=== PATIENT | female | born 1925 | race Caucasian/White ===

== ENCOUNTER 2016-12-14 19:34 | Inpatient (IN) | payer OTHER ==
[~2016-12-14] VITALS: Ht 152.4 cm; Wt 50.8 kg
[~2016-12-14 19:34] MED LIST: AMOXICILLIN500 MG PO
[2016-12-14 20:22] LABS: HEMATOCRIT 23.6 % (36.0-46.0); MCH 30.3 PG (29.0-34.0); MCHC 33.9 G/DL (30.0-36.0); MCV 89.4 FL (83-99); RBC DIS.WIDTH-CV 13.6 % (11.8-14.6); RBC DIS.WIDTH-SD 42.1 % (39-53); RED BLOOD COUNT 2.64 M/uL (3.80-5.20)
[2016-12-14 20:29] LABS: CHLORIDE 98 mEq/L (99-109); POTASSIUM 4.3 mEq/L (3.7-5.4); SODIUM 131 mEq/L (136-147)
[2016-12-14 20:31] LABS: GLUCOSE 102 mg/dL (70-99)
[2016-12-14 20:33] LABS: ANION GAP 12 MEQ/L (2-14)
[2016-12-14 20:35] LABS: GFR ESTIMATE (CALCULATED) 25 mL/min/
[2016-12-14 20:38] LABS: UREA NITROGEN (BUN) 124 mg/dL (9-23)
[2016-12-14 21:09] LABS: MEAN PLAT.VOLUME 12.4 uM^3 (9.5-12.4); PLATELET COUNT 6 K/uL (156-360)
[2016-12-14] MEDS ORDERED: PHENERGAN DM SYR1 ML PO (22:37)
[2016-12-14] MEDS ORDERED: ATENOLOL100 MG PO (22:37)
[2016-12-14] MEDS ORDERED: VALSARTAN-HCTZ1 EAC3 PO (22:38)
[2016-12-14] MEDS ORDERED: LEVOTHYROXINE125 MCG PO (22:38)
[2016-12-14] MEDS ORDERED: ADVAIR 250/501 DISK IH (22:38)
[2016-12-14 22:39] LABS: ABSOLUTE RETICULOCYTE CT. 0.08 M/uL (0.02-0.08); HEMATOCRIT 23.4 % (36.0-46.0); IMM.RETIC FRACTION 21.6 % (3-19); MCHC 33.8 G/DL (30.0-36.0); RBC DIS.WIDTH-CV 13.4 % (11.8-14.6); RBC DIS.WIDTH-SD 41.5 % (39-53); RED BLOOD COUNT 2.63 M/uL (3.80-5.20); WHITE BLOOD COUNT 18.9 K/uL (4.1-10.2)
[2016-12-14] MEDS ORDERED: MEPROBAMATE200 MG PO (22:39)
[2016-12-14] MEDS ORDERED: VITAMIN D31000 UNI2 PO (22:40)
[2016-12-14] MEDS ORDERED: TUSSIN15 MG/5 M1 PO (22:40)
[2016-12-14] MEDS ORDERED: VITAMIN B-6100 MG PO (22:41)
[2016-12-14 22:49] LABS: CHLORIDE 101 mEq/L (99-109); POTASSIUM 3.7 mEq/L (3.7-5.4); SODIUM 134 mEq/L (136-147)
[2016-12-14 22:51] LABS: GLUCOSE 77 mg/dL (70-99)
[2016-12-14 22:52] LABS: ANION GAP 12 MEQ/L (2-14); INTER. NORMALIZED RATIO 1.1; PROTHROMBIN TIME 10.8 (9.2-11.2); PTT 27.8 (25-32)
[2016-12-14 22:53] LABS: TOTAL BILIRUBIN 0.8 mg/dL (0.0-1.0)
[2016-12-14 22:55] LABS: ALKALINE PHOSPHATASE 52 IU/L (3-129); GFR ESTIMATE (CALCULATED) 30 mL/min/
[2016-12-14 22:57] LABS: UREA NITROGEN (BUN) 116 mg/dL (9-23)
[2016-12-14 23:34] LABS: LACTATE DEHYDROGENASE 286 IU/L (20-246)
[2016-12-15] VITALS (22 sets, daily range): BP systolic 0–158; BP diastolic 0–89
[2016-12-15 01:05] LABS: ANISOCYTOSIS 2+; MACROCYTES 1+; MICROCYTOSIS 1+; OVALOCYTES 1+; PLAT.SUFFICIENCY DECREASED; PLATELET COUNT 2 K/uL (156-360); POLYCHROMASIA RARE; SCHISTOCYTES RARE; SMUDGE CELLS 0
[2016-12-15 02:46] LABS: FIBRINOGEN 467 MG/DL (160-450)
[2016-12-15 03:21] LABS: METH RESISTANT S AUREUS PCR NEGATIVE (NEGATIVE)
[2016-12-15 03:33] LABS: PROBE CHECK PASS; SPECIMEN PROCESSING CONTROL PASS
[2016-12-15 06:25] LABS: ALKALINE PHOSPHATASE 47 IU/L (3-129); ANION GAP 14 MEQ/L (2-14); CHLORIDE 97 MEQ/L (99-109); GFR ESTIMATE (CALCULATED) 35 mL/min/; GLUCOSE 81 mg/dL (70-99); POTASSIUM 3.5 MEQ/L (3.7-5.4); SAMPLE HEMOLYSIS CHECK 0; SAMPLE ICTERIC CHECK 0; SAMPLE LIPEMIA CHECK 0; SODIUM 130 MEQ/L (136-147); TOTAL BILIRUBIN 1.2 MG/DL (0.0-1.0)
[2016-12-15 06:48] LABS: UREA NITROGEN (BUN) 102 mg/dL (9-23)
[2016-12-15 07:05] LABS: MCH 29.9 PG (29.0-34.0); MCHC 34.3 G/DL (30.0-36.0); MCV 87.2 FL (83-99); RBC DIS.WIDTH-CV 13.9 % (11.8-14.6); RBC DIS.WIDTH-SD 44.1 % (39-53)
[2016-12-15 07:10] LABS: RED BLOOD COUNT 3.21 M/uL (3.80-5.20)
[2016-12-15 08:20] LABS: ABS NEUTROPHIL COUNT 16.74; ANISOCYTOSIS 1+; MACROCYTES OCC; NRBC (%) 0.8 /100 WBC (0-0); OVALOCYTES 1+; PLAT.SUFFICIENCY DECREASED; POLYCHROMASIA OCC
[2016-12-15 08:28] LABS: DELETE MACHINE DIFF? YES; MEAN PLAT.VOLUME 9.6 uM^3 (9.5-12.4); PLATELET COUNT 25 K/uL (156-360)
[2016-12-15 13:02] LABS: HEMATOCRIT 25.3 % (36.0-46.0); MCH 29.9 PG (29.0-34.0); MCHC 35.6 G/DL (30.0-36.0); MCV 84.1 FL (83-99); NRBC (%) 0.8 /100 WBC (0-0); RBC DIS.WIDTH-CV 15.1 % (11.8-14.6); RBC DIS.WIDTH-SD 46.2 % (39-53); RED BLOOD COUNT 3.01 M/uL (3.80-5.20); WHITE BLOOD COUNT 18.4 K/uL (4.1-10.2)
[2016-12-15 13:41] LABS: HEMATOLOGY COMMENT 1 SMEAR COMPATIBLE; USER ID CL
[2016-12-15 13:42] LABS: BASOPHIL COUNT 0.1 K/uL (0-0.1); EOSINOPHIL (%) 0 % (0-5); IMMATURE GRANULOCYTE (%) 13.3 % (0.0-0.7); IMMATURE GRANULOCYTE COUNT 2.5 K/uL; LYMPHOCYTE COUNT 1.2 K/uL (1.0-2.8); MONOCYTE (%) 4.1 % (3-12); MONOCYTE COUNT 0.8 K/uL (0-0.8); NEUTROPHIL (%) 75.8 % (45-76)
[2016-12-15 13:59] LABS: MEAN PLAT.VOLUME 12.2 uM^3 (9.5-12.4); PLATELET COUNT 51 K/uL (156-360)
[2016-12-15 19:02] LABS: HEMATOCRIT 24.4 % (36.0-46.0); MCH 29.7 PG (29.0-34.0); MCHC 35.7 G/DL (30.0-36.0); MCV 83.3 FL (83-99); MEAN PLAT.VOLUME 11.6 uM^3 (9.5-12.4); NRBC (%) 1.2 /100 WBC (0-0); PLATELET COUNT 56 K/uL (156-360); RBC DIS.WIDTH-CV 15.3 % (11.8-14.6); RBC DIS.WIDTH-SD 46.3 % (39-53); RED BLOOD COUNT 2.93 M/uL (3.80-5.20); WHITE BLOOD COUNT 17.4 K/uL (4.1-10.2)
[2016-12-15 19:48] LABS: ABS NEUTROPHIL COUNT 15.47; ANISOCYTOSIS 1+; BASOPHIL COUNT 0.1 K/uL (0-0.1); EOSINOPHIL (%) 0.1 % (0-5); IMMATURE GRANULOCYTE (%) 15.8 % (0.0-0.7); IMMATURE GRANULOCYTE COUNT 2.7 K/uL; LYMPHOCYTE COUNT 1.1 K/uL (1.0-2.8); MONOCYTE (%) 6.8 % (3-12); MONOCYTE COUNT 1.2 K/uL (0-0.8); NEUTROPHIL (%) 70.7 % (45-76); NEUTROPHIL COUNT 12.3 K/uL (1.8-6.4); PLAT.SUFFICIENCY DECREASED; USER ID NPD
[2016-12-16] VITALS (14 sets, daily range): BP systolic 100–140; BP diastolic 42–88
[2016-12-16 01:07] LABS: HEMATOCRIT 22.9 % (36.0-46.0); MCH 29.6 PG (29.0-34.0); MCHC 34.9 G/DL (30.0-36.0); MCV 84.8 FL (83-99); RBC DIS.WIDTH-CV 15.1 % (11.8-14.6); RBC DIS.WIDTH-SD 44.4 % (39-53); WHITE BLOOD COUNT 16.1 K/uL (4.1-10.2)
[2016-12-16 02:39] LABS: DELETE MACHINE DIFF? YES
[2016-12-16 02:52] LABS: ABS NEUTROPHIL COUNT 13.16; ANISOCYTOSIS 1+; MEAN PLAT.VOLUME 13.1 uM^3 (9.5-12.4); OVALOCYTES RARE; PLAT.SUFFICIENCY DECREASED; PLATELET COUNT 35 K/uL (156-360); POLYCHROMASIA 1+
[2016-12-16 05:49] LABS: HEMATOCRIT 22.8 % (36.0-46.0); MCH 29.5 PG (29.0-34.0); MCHC 34.6 G/DL (30.0-36.0); MCV 85.1 FL (83-99); NRBC (%) 0.8 /100 WBC (0-0); RBC DIS.WIDTH-CV 15.9 % (11.8-14.6); RBC DIS.WIDTH-SD 48.8 % (39-53); RED BLOOD COUNT 2.68 M/uL (3.80-5.20); WHITE BLOOD COUNT 14.6 K/uL (4.1-10.2)
[2016-12-16 07:50] LABS: ABS NEUTROPHIL COUNT 12.98; ANISOCYTOSIS 1+; DELETE MACHINE DIFF? YES; HYPOCHROMASIA 1+; MACROCYTES OCC; MEAN PLAT.VOLUME 12.1 uM^3 (9.5-12.4); MICROCYTOSIS OCC; PLAT.SUFFICIENCY DECREASED; PLATELET COUNT 34 K/uL (156-360); POLYCHROMASIA OCC; SPHEROCYTES 1+; USER ID TLW
[2016-12-16 08:30] LABS: ALKALINE PHOSPHATASE 40 IU/L (3-129); ANION GAP 11 MEQ/L (2-14); GFR ESTIMATE (CALCULATED) 50 mL/min/; POTASSIUM 2.8 MEQ/L (3.7-5.4); SAMPLE HEMOLYSIS CHECK 0; SAMPLE ICTERIC CHECK 0; SAMPLE LIPEMIA CHECK 0; UREA NITROGEN (BUN) 64 mg/dL (9-23)
[2016-12-16 08:33] LABS: CHLORIDE 107 MEQ/L (99-109); GLUCOSE 181 mg/dL (70-99); SODIUM 141 MEQ/L (136-147)
[2016-12-16 12:17] LABS: NRBC (%) 0.6 /100 WBC (0-0)
[2016-12-16 12:26] LABS: HEMATOCRIT 25.7 % (36.0-46.0); MCH 29.8 PG (29.0-34.0); MCV 85.1 FL (83-99); RBC DIS.WIDTH-CV 15.8 % (11.8-14.6); RBC DIS.WIDTH-SD 48.7 % (39-53); RED BLOOD COUNT 3.02 M/uL (3.80-5.20)
[2016-12-16 12:27] LABS: DELETE MACHINE DIFF? YES; MEAN PLAT.VOLUME 9.6 uM^3 (9.5-12.4); PLATELET COUNT 119 K/uL (156-360); WHITE BLOOD COUNT 19.3 K/uL (4.1-10.2)
[2016-12-16 18:05] LABS: HEMATOCRIT 25.9 % (36.0-46.0); MCH 29.7 PG (29.0-34.0); MCHC 34.7 G/DL (30.0-36.0); MCV 85.5 FL (83-99); MEAN PLAT.VOLUME 10.5 uM^3 (9.5-12.4); PLATELET COUNT 109 K/uL (156-360); RBC DIS.WIDTH-SD 49.2 % (39-53); RED BLOOD COUNT 3.03 M/uL (3.80-5.20); WHITE BLOOD COUNT 17.4 K/uL (4.1-10.2)
[2016-12-16 19:05] LABS: ABS NEUTROPHIL COUNT 14.46
[2016-12-16 19:06] LABS: DELETE MACHINE DIFF? YES
[2016-12-17] VITALS: BP 139/85
[2016-12-17 00:46] LABS: HEMATOCRIT 25.7 % (36.0-46.0); MCH 29.6 PG (29.0-34.0); MCHC 34.6 G/DL (30.0-36.0); MCV 85.4 FL (83-99); RBC DIS.WIDTH-CV 15.8 % (11.8-14.6); RBC DIS.WIDTH-SD 46.2 % (39-53); RED BLOOD COUNT 3.01 M/uL (3.80-5.20); WHITE BLOOD COUNT 19.1 K/uL (4.1-10.2)
[2016-12-17 01:46] LABS: ANISOCYTOSIS 1+; PLAT.SUFFICIENCY DECREASED; POLYCHROMASIA 1+; TEAR DROP CELLS OCC; USER ID SLU
[2016-12-17 01:47] LABS: DELETE MACHINE DIFF? YES; MEAN PLAT.VOLUME 11.8 uM^3 (9.5-12.4); PLATELET COUNT 52 K/uL (156-360)
[2016-12-17 04:00] VITALS: BP 115/62
[2016-12-17 06:12] LABS: HEMATOCRIT 24.7 % (36.0-46.0); MCH 28.7 PG (29.0-34.0); MCHC 33.6 G/DL (30.0-36.0); MCV 85.5 FL (83-99); NRBC (%) 0.9 /100 WBC (0-0); RBC DIS.WIDTH-CV 16.1 % (11.8-14.6); RBC DIS.WIDTH-SD 48.9 % (39-53); RED BLOOD COUNT 2.89 M/uL (3.80-5.20); WHITE BLOOD COUNT 16.9 K/uL (4.1-10.2)
[2016-12-17 06:34] LABS: DELETE MACHINE DIFF? YES; MEAN PLAT.VOLUME 10.5 uM^3 (9.5-12.4)
[2016-12-17 06:36] LABS: ALKALINE PHOSPHATASE 50 IU/L (3-129); ANION GAP 11 MEQ/L (2-14); CHLORIDE 108 MEQ/L (99-109); GFR ESTIMATE (CALCULATED) 50 mL/min/; GLUCOSE 184 mg/dL (70-99); POTASSIUM 3.2 MEQ/L (3.7-5.4); SAMPLE HEMOLYSIS CHECK 0; SAMPLE ICTERIC CHECK 0; SAMPLE LIPEMIA CHECK 0; SODIUM 142 MEQ/L (136-147); TOTAL BILIRUBIN 0.9 MG/DL (0.0-1.0); UREA NITROGEN (BUN) 46 mg/dL (9-23)
[2016-12-17 06:38] LABS: PLATELET COUNT 106 K/uL (156-360)
[2016-12-17 08:00] VITALS: BP 158/74
[2016-12-17 10:40] LABS: ABS NEUTROPHIL COUNT 13.82; ANISOCYTOSIS 1+; MACROCYTES OCC; MICROCYTOSIS 1+; PLAT.SUFFICIENCY DECREASED; POLYCHROMASIA OCC; USER ID STC
[2016-12-17 12:00] VITALS: BP 151/78
[2016-12-17 12:38] LABS: HEMATOCRIT 27.3 % (36.0-46.0); MCH 29.9 PG (29.0-34.0); MCHC 34.4 G/DL (30.0-36.0); MCV 86.9 FL (83-99); MEAN PLAT.VOLUME 11.8 uM^3 (9.5-12.4); NRBC (%) 1.2 /100 WBC (0-0); PLATELET COUNT 129 K/uL (156-360); RBC DIS.WIDTH-CV 16.4 % (11.8-14.6); RBC DIS.WIDTH-SD 49.5 % (39-53); RED BLOOD COUNT 3.14 M/uL (3.80-5.20); WHITE BLOOD COUNT 20.6 K/uL (4.1-10.2)
[2016-12-17 14:43] LABS: ABS NEUTROPHIL COUNT 14.95; ANISOCYTOSIS 1+; BASOPHIL COUNT 0.1 K/uL (0-0.1); EOSINOPHIL (%) 0 % (0-5); EOSINOPHILS 0.5 % (0-5.0); IMMATURE GRANULOCYTE (%) 17.9 % (0.0-0.7); IMMATURE GRANULOCYTE COUNT 3.7 K/uL; MACROCYTES OCC; MICROCYTOSIS OCC; MONOCYTE (%) 10.2 % (3-12); MONOCYTE COUNT 2.1 K/uL (0-0.8); MYELOCYTES 6.5 %; NEUTROPHIL (%) 66.5 % (45-76); NEUTROPHIL COUNT 13.7 K/uL (1.8-6.4); NUCLEATED RBC'S 1.5; PLAT.SUFFICIENCY DECREASED; POLYCHROMASIA OCC; SEG.NEUTROPHILS 65.5 % (46.0-76.0)
[2016-12-17 18:56] LABS: HEMATOCRIT 30.1 % (36.0-46.0); MCH 28.6 PG (29.0-34.0); MCHC 32.9 G/DL (30.0-36.0); MEAN PLAT.VOLUME 11.8 uM^3 (9.5-12.4); NRBC (%) 0.7 /100 WBC (0-0); PLATELET COUNT 136 K/uL (156-360); RBC DIS.WIDTH-CV 16.6 % (11.8-14.6); RBC DIS.WIDTH-SD 49.4 % (39-53); RED BLOOD COUNT 3.46 M/uL (3.80-5.20); WHITE BLOOD COUNT 19.1 K/uL (4.1-10.2)
[2016-12-17 20:00] VITALS: BP 146/60
[2016-12-17 20:28] LABS: ANISOCYTOSIS 2+; BASOPHIL COUNT 0.1 K/uL (0-0.1); EOSINOPHIL (%) 0 % (0-5); IMMATURE GRANULOCYTE COUNT 3.1 K/uL; MACROCYTES OCC; MICROCYTOSIS OCC; MONOCYTE (%) 7.5 % (3-12); MONOCYTE COUNT 1.4 K/uL (0-0.8); NEUTROPHIL (%) 70.8 % (45-76); NEUTROPHIL COUNT 13.5 K/uL (1.8-6.4); PLAT.SUFFICIENCY ADEQUATE; POLYCHROMASIA OCC; USER ID NJV
[2016-12-18] VITALS (7 sets, daily range): BP systolic 110–178; BP diastolic 47–86
[2016-12-18 01:12] LABS: HEMATOCRIT 25.3 % (36.0-46.0); MCH 29.3 PG (29.0-34.0); MCHC 33.6 G/DL (30.0-36.0); MCV 87.2 FL (83-99); MEAN PLAT.VOLUME 11.9 uM^3 (9.5-12.4); PLATELET COUNT 120 K/uL (156-360); RBC DIS.WIDTH-CV 17.2 % (11.8-14.6); RBC DIS.WIDTH-SD 48.2 % (39-53); WHITE BLOOD COUNT 19.4 K/uL (4.1-10.2)
[2016-12-18 01:39] LABS: NRBC (%) 0.6 /100 WBC (0-0)
[2016-12-18 02:32] LABS: ANISOCYTOSIS 1+; MACROCYTES 1+; MICROCYTOSIS FEW; PLAT.SUFFICIENCY ADEQUATE; POLYCHROMASIA FEW
[2016-12-18 02:33] LABS: ABS NEUTROPHIL COUNT 17.24
[2016-12-18 05:59] LABS: HEMATOCRIT 26.1 % (36.0-46.0); MCHC 33.7 G/DL (30.0-36.0); MCV 89.1 FL (83-99); NRBC (%) 0.6 /100 WBC (0-0); PLATELET COUNT 112 K/uL (156-360); RBC DIS.WIDTH-CV 17.5 % (11.8-14.6); RBC DIS.WIDTH-SD 52.2 % (39-53); RED BLOOD COUNT 2.93 M/uL (3.80-5.20); WHITE BLOOD COUNT 17.1 K/uL (4.1-10.2)
[2016-12-18 06:54] LABS: ALKALINE PHOSPHATASE 50 IU/L (3-129); ANION GAP 8 MEQ/L (2-14); CHLORIDE 109 MEQ/L (99-109); GFR ESTIMATE (CALCULATED) 50 mL/min/; GLUCOSE 182 mg/dL (70-99); POTASSIUM 3.8 MEQ/L (3.7-5.4); SAMPLE HEMOLYSIS CHECK 0; SAMPLE ICTERIC CHECK 0; SAMPLE LIPEMIA CHECK 0; SODIUM 140 MEQ/L (136-147); TOTAL BILIRUBIN 0.7 MG/DL (0.0-1.0); UREA NITROGEN (BUN) 37 mg/dL (9-23)
[2016-12-18 07:16] LABS: ABS NEUTROPHIL COUNT 14.88; ANISOCYTOSIS 1+; MACROCYTES OCC; PLAT.SUFFICIENCY DECREASED; POLYCHROMASIA OCC; USER ID MCB
[2016-12-18 07:22] LABS: DELETE MACHINE DIFF? YES
[2016-12-18 13:13] LABS: HEMATOCRIT 28.8 % (36.0-46.0); MCH 29.9 PG (29.0-34.0); MCHC 33.7 G/DL (30.0-36.0); MCV 88.9 FL (83-99); NRBC (%) 0.6 /100 WBC (0-0); RBC DIS.WIDTH-CV 17.6 % (11.8-14.6); RBC DIS.WIDTH-SD 51.6 % (39-53); RED BLOOD COUNT 3.24 M/uL (3.80-5.20); WHITE BLOOD COUNT 22.2 K/uL (4.1-10.2)
[2016-12-18 13:21] LABS: MEAN PLAT.VOLUME 12.5 uM^3 (9.5-12.4)
[2016-12-18 13:26] LABS: PLATELET COUNT 148 K/uL (156-360)
[2016-12-18 14:13] LABS: ABS NEUTROPHIL COUNT 18.97; ANISOCYTOSIS 1+; DELETE MACHINE DIFF? YES; LYMPHOCYTES 3.5 % (15.0-45.0); MACROCYTES OCC; PLAT.SUFFICIENCY ADEQUATE; POLYCHROMASIA OCC; SEG.NEUTROPHILS 70.5 % (46.0-76.0); USER ID MCB
[2016-12-18 18:49] LABS: HEMATOCRIT 28.1 % (36.0-46.0); MCH 29.8 PG (29.0-34.0); MCHC 33.8 G/DL (30.0-36.0); MCV 88.1 FL (83-99); MEAN PLAT.VOLUME 11.9 uM^3 (9.5-12.4); NRBC (%) 0.7 /100 WBC (0-0); PLATELET COUNT 147 K/uL (156-360); RBC DIS.WIDTH-CV 17.7 % (11.8-14.6); RBC DIS.WIDTH-SD 51.2 % (39-53); RED BLOOD COUNT 3.19 M/uL (3.80-5.20); WHITE BLOOD COUNT 21.5 K/uL (4.1-10.2)
[2016-12-18 19:18] LABS: ABS NEUTROPHIL COUNT 19.58; ANISOCYTOSIS 1+; HYPOCHROMASIA FEW; PLAT.SUFFICIENCY DECREASED
[2016-12-18 19:20] LABS: DELETE MACHINE DIFF? YES
[2016-12-19 00:59] LABS: HEMATOCRIT 28.2 % (36.0-46.0); MCH 29.8 PG (29.0-34.0); MCHC 33.3 G/DL (30.0-36.0); MCV 89.5 FL (83-99); MEAN PLAT.VOLUME 11.8 uM^3 (9.5-12.4); PLATELET COUNT 141 K/uL (156-360); RBC DIS.WIDTH-CV 17.9 % (11.8-14.6); RBC DIS.WIDTH-SD 50.5 % (39-53); RED BLOOD COUNT 3.15 M/uL (3.80-5.20); WHITE BLOOD COUNT 21.7 K/uL (4.1-10.2)
[2016-12-19 02:26] LABS: DELETE MACHINE DIFF? YES
[2016-12-19 02:34] LABS: ABS NEUTROPHIL COUNT 19.34; ANISOCYTOSIS 1+; BASOPHIL COUNT 0.1 K/uL (0-0.1); EOSINOPHIL (%) 0 % (0-5); IMMATURE GRANULOCYTE (%) 10.8 % (0.0-0.7); IMMATURE GRANULOCYTE COUNT 23.5 K/uL; LYMPHOCYTE COUNT 1.2 K/uL (1.0-2.8); MONOCYTE (%) 6.7 % (3-12); MONOCYTE COUNT 1.5 K/uL (0-0.8); NEUTROPHIL (%) 76.5 % (45-76); NEUTROPHIL COUNT 16.6 K/uL (1.8-6.4); PLAT.SUFFICIENCY DECREASED; POLYCHROMASIA FEW
[2016-12-19 06:11] LABS: HEMATOCRIT 28.6 % (36.0-46.0); MCH 29.9 PG (29.0-34.0); MCHC 33.6 G/DL (30.0-36.0); MCV 89.1 FL (83-99); MEAN PLAT.VOLUME 12.2 uM^3 (9.5-12.4); NRBC (%) 0.4 /100 WBC (0-0); PLATELET COUNT 141 K/uL (156-360); RBC DIS.WIDTH-CV 17.9 % (11.8-14.6); RED BLOOD COUNT 3.21 M/uL (3.80-5.20); WHITE BLOOD COUNT 22.1 K/uL (4.1-10.2)
[2016-12-19 07:19] VITALS: BP 156/82
[2016-12-19 08:47] LABS: ANISOCYTOSIS 1+; BAND NEUTROPHILS 9.5 % (0-8.0); MACROCYTES OCC; MICROCYTOSIS 1+; MYELOCYTES 1.5 %; NUCLEATED RBC'S 0.5; PLAT.SUFFICIENCY DECREASED; POLYCHROMASIA RARE; SCHISTOCYTES RARE; SEG.NEUTROPHILS 75.5 % (46.0-76.0); USER ID STC
[2016-12-19 09:58] LABS: DELETE MACHINE DIFF? YES
[2016-12-19 12:29] LABS: DELETE MACHINE DIFF? YES
[2016-12-19 12:33] LABS: HEMATOCRIT 36.2 % (36.0-46.0); MCH 30.4 PG (29.0-34.0); MCHC 34.3 G/DL (30.0-36.0); MCV 88.7 FL (83-99); MEAN PLAT.VOLUME 11.9 uM^3 (9.5-12.4); NRBC (%) 0.6 /100 WBC (0-0); RBC DIS.WIDTH-CV 17.7 % (11.8-14.6); RBC DIS.WIDTH-SD 51.1 % (39-53)
[2016-12-19 12:35] LABS: PLATELET COUNT 195 K/uL (156-360); RED BLOOD COUNT 4.08 M/uL (3.80-5.20); WHITE BLOOD COUNT 28.8 K/uL (4.1-10.2)
[2016-12-19 18:15] LABS: MEAN PLAT.VOLUME 12.2 uM^3 (9.5-12.4); PLATELET COUNT 180 K/uL (156-360)
[2016-12-19 18:44] LABS: ABS NEUTROPHIL COUNT 30.59; ANISOCYTOSIS 1+; BAND NEUTROPHILS 9.5 % (0-8.0); GIANT PLATELETS OCC; LYMPHOCYTES 1.5 % (15.0-45.0); MCHC 32.9 G/DL (30.0-36.0); PLAT.SUFFICIENCY ADEQUATE; POLYCHROMASIA 1+; RBC DIS.WIDTH-CV 18.2 % (11.8-14.6); RBC DIS.WIDTH-SD 51.8 % (39-53); RED BLOOD COUNT 4.66 M/uL (3.80-5.20)
[2016-12-19 18:47] LABS: DELETE MACHINE DIFF? YES
[2016-12-19 22:43] VITALS: BP 195/101
[2016-12-20 06:01] LABS: MEAN PLAT.VOLUME 12.1 uM^3 (9.5-12.4); NRBC (%) 0.6 /100 WBC (0-0); PLATELET COUNT 137 K/uL (156-360)
[2016-12-20 06:27] LABS: ALKALINE PHOSPHATASE 71 IU/L (3-129); ANION GAP 10 MEQ/L (2-14); CHLORIDE 101 MEQ/L (99-109); GFR ESTIMATE (CALCULATED) 41 mL/min/; GLUCOSE 125 mg/dL (70-99); POTASSIUM 3.2 MEQ/L (3.7-5.4); SAMPLE HEMOLYSIS CHECK 0; SAMPLE ICTERIC CHECK 0; SAMPLE LIPEMIA CHECK 0; SODIUM 134 MEQ/L (136-147); TOTAL BILIRUBIN 0.8 MG/DL (0.0-1.0); UREA NITROGEN (BUN) 38 mg/dL (9-23)
[2016-12-20 06:33] LABS: HEMATOCRIT 38.6 % (36.0-46.0); MCH 29.9 PG (29.0-34.0); MCHC 33.7 G/DL (30.0-36.0); MCV 88.7 FL (83-99); RBC DIS.WIDTH-CV 18.2 % (11.8-14.6); RBC DIS.WIDTH-SD 52.9 % (39-53); RED BLOOD COUNT 4.35 M/uL (3.80-5.20)
[2016-12-20 06:35] LABS: WHITE BLOOD COUNT 33.8 K/uL (4.1-10.2)
[2016-12-20 06:55] LABS: ABS NEUTROPHIL COUNT 31.78; ANISOCYTOSIS 1+; DELETE MACHINE DIFF? YES; MACROCYTES 1+; METAMYELOCYTES 1.5 %; NUCLEATED RBC'S 1.5; PLAT.SUFFICIENCY DECREASED; POLYCHROMASIA OCC; USER ID TLW
[2016-12-20 07:38] VITALS: BP 185/99
[2016-12-20 08:13] VITALS: BP 179/99
[2016-12-20 11:56] VITALS: BP 198/100
[2016-12-20 13:20] VITALS: BP 173/73
[2016-12-20 13:35] LABS: C DIFF TOXIN NEGATIVE (NEGATIVE)
[2016-12-20 13:37] LABS: PROBE CHECK PASS; SPECIMEN PROCESSING CONTROL PASS
[2016-12-20 15:34] VITALS: BP 163/77
[2016-12-20 20:04] LABS: HEMATOLOGY COMMENT 1 SMEAR COMPATIBLE; MCH 31.3 PG (29.0-34.0); MCHC 35.4 G/DL (30.0-36.0); MCV 88.4 FL (83-99); MEAN PLAT.VOLUME 13.1 uM^3 (9.5-12.4); PLATELET COUNT 144 K/uL (156-360); RBC DIS.WIDTH-CV 18.7 % (11.8-14.6); RBC DIS.WIDTH-SD 52.5 % (39-53); RED BLOOD COUNT 4.64 M/uL (3.80-5.20); WHITE BLOOD COUNT 33.5 K/uL (4.1-10.2)
[2016-12-20 22:51] VITALS: BP 129/68
[2016-12-21 07:06] LABS: EOSINOPHIL (%) 0 % (0-5); HEMATOCRIT 35.4 % (36.0-46.0); IMMATURE GRANULOCYTE (%) 2.4 % (0.0-0.7); IMMATURE GRANULOCYTE COUNT 0.7 K/uL; LYMPHOCYTE COUNT 1.2 K/uL (1.0-2.8); MCH 30.5 PG (29.0-34.0); MCHC 34.5 G/DL (30.0-36.0); MCV 88.5 FL (83-99); MONOCYTE (%) 6.9 % (3-12); MONOCYTE COUNT 1.9 K/uL (0-0.8); NEUTROPHIL (%) 86.2 % (45-76); NEUTROPHIL COUNT 24.1 K/uL (1.8-6.4); NRBC (%) 0.3 /100 WBC (0-0); RBC DIS.WIDTH-CV 18.8 % (11.8-14.6); RBC DIS.WIDTH-SD 53.5 % (39-53); WHITE BLOOD COUNT 27.9 K/uL (4.1-10.2)
[2016-12-21 07:11] LABS: ALKALINE PHOSPHATASE 64 IU/L (3-129); ANION GAP 13 MEQ/L (2-14); CHLORIDE 101 MEQ/L (99-109); GFR ESTIMATE (CALCULATED) 41 mL/min/; GLUCOSE 100 mg/dL (70-99); POTASSIUM 3.6 MEQ/L (3.7-5.4); SAMPLE HEMOLYSIS CHECK 0; SAMPLE ICTERIC CHECK 0; SAMPLE LIPEMIA CHECK 0; SODIUM 136 MEQ/L (136-147); TOTAL BILIRUBIN 0.7 MG/DL (0.0-1.0); UREA NITROGEN (BUN) 42 mg/dL (9-23)
[2016-12-21 07:44] VITALS: BP 144/70
[2016-12-21 08:46] LABS: HEMATOLOGY COMMENT 1 SMEAR COMPATIBLE; PLAT.SUFFICIENCY DECREASED; PLATELET COUNT 124 K/uL (156-360)
[2016-12-21 16:58] VITALS: BP 140/70
[2016-12-21] MEDS ORDERED: K-DUR10 MEQ PO (19:17)
[2016-12-21] MEDS ORDERED: NAMENDA5 MG PO (19:17)
[2016-12-21] MEDS ORDERED: BROVANA15 MCG/2 M IH (19:17)
[2016-12-21] MEDS ORDERED: ATROPINE 1100 DROP/5 SL (19:17)
[2016-12-21] MEDS ORDERED: PROTONIX IV40 MG IV (19:17)
[2016-12-21] MEDS ORDERED: PREDNISONE20 MG PO (19:17)
[2016-12-21] MEDS ORDERED: ALPRAZOLAM0.5 MG PO (19:17)
[2016-12-21] MEDS ORDERED: CEFDINIR300 MG PO (19:17)
[2016-12-21] MEDS ORDERED: PAROXETINE HCL10 MG PO (19:17)
[2016-12-21] MEDS ORDERED: VALSARTAN160 MG PO (19:17)
[2016-12-21] MEDS ORDERED: APRESOLINE50 MG PO (19:17)
[2016-12-21] MEDS ORDERED: PROAIR HFA8.5 GM IH (19:32)
== END 2016-12-21 21:33 | disposition home health service (06) | DRG 813 ==
LOC: EME → EDBD 19:34 → EME 19:34 → EDOF 23:25 → 4WEST 23:25 → 5EAST 12-18 08:03
PROVIDERS: Emergency Medicine; Internal Medicine; Internal Medicine Gastroenterology; Internal Medicine Medical Oncology
PROC: 30233R1 Transfusion of Nonautologous Platelets into Peripheral Vein, Percutaneous Approach (ICD-10-PCS; principal; 2016-12-14)
PROC: 30233N1 Transfusion of Nonautologous Red Blood Cells into Peripheral Vein, Percutaneous Approach (ICD-10-PCS; principal; 2016-12-14)
PROC: 0DJ08ZZ Inspection of Upper Intestinal Tract, Via Natural or Artificial Opening Endoscopic (ICD-10-PCS; 2016-12-16)
DX: D69.6 Thrombocytopenia, unspecified (principal); J18.9 Pneumonia, unspecified organism; D62 Acute posthemorrhagic anemia; K92.2 Gastrointestinal hemorrhage, unspecified; N17.9 Acute kidney failure, unspecified; K22.10 Ulcer of esophagus without bleeding; M48.54XA Collapsed vertebra, not elsewhere classified, thoracic region, initial encounter for fracture; T43.3X5A Adverse effect of phenothiazine antipsychotics and neuroleptics, initial encounter; J44.9 Chronic obstructive pulmonary disease, unspecified; I10 Essential (primary) hypertension; F02.80 Dementia in other diseases classified elsewhere, unspecified severity, without behavioral disturbance, psychotic disturbance, mood disturbance, and anxiety; T36.3X5A Adverse effect of macrolides, initial encounter; K29.00 Acute gastritis without bleeding; G30.9 Alzheimer's disease, unspecified; K44.9 Diaphragmatic hernia without obstruction or gangrene; E03.9 Hypothyroidism, unspecified; Z90.49 Acquired absence of other specified parts of digestive tract; E87.6 Hypokalemia; F41.9 Anxiety disorder, unspecified
CPT/HCPCS: 71010; 71020; 80048; 80053; 81003; 83010 90; 83615; 83880; 85007; 85025; 85025 91; 85027; 85045; 85060; 85379; 85384; 85610; 85730; 86850; 86900; 86901; 86920; 87493; 87641; 93005; 93306; 94640; 94640 76; 94799; 99202; 99281; 99285; C9113; J0360; J0696; J1940; J2930; J3480; J7030; J7042; J7050; J7512; P9016; P9035; S0030

== ENCOUNTER 2017-01-25 14:03 | Inpatient (IN) | payer OTHER ==
[~2017-01-25] VITALS: Ht 149.9 cm; Wt 45.5 kg
[~2017-01-25 14:03] MED LIST changes: +ADVAIR 250/501 DISK IH; +ALPRAZOLAM0.5 MG PO; +APRESOLINE50 MG PO; +ATENOLOL100 MG PO; +ATROPINE 1100 DROP/5 SL; +BROVANA15 MCG/2 M IH; +CEFDINIR300 MG PO; +K-DUR10 MEQ PO; +LEVOTHYROXINE125 MCG PO; +MEPROBAMATE200 MG PO; +NAMENDA5 MG PO; +PAROXETINE HCL10 MG PO; +PHENERGAN DM SYR1 ML PO; +PREDNISONE20 MG PO; +PROAIR HFA8.5 GM IH; +PROTONIX IV40 MG IV; +TUSSIN15 MG/5 M1 PO; +VALSARTAN-HCTZ1 EAC3 PO; +VALSARTAN160 MG PO; +VITAMIN B-6100 MG PO; +VITAMIN D31000 UNI2 PO
[2017-01-25 14:36] LABS: BASE EXCESS 1.6 mEq/L (-3 to +3); BICARBONATE 23.9 mEq/L (22-26); METHEMOGLOBIN 1.1 % (0-1.5); PCO2 30 mm Hg (35-45); PO2 411 mm Hg (80-100); pH 7.51 (7.35-7.45)
[2017-01-25 14:38] LABS: COMMENTS - BLOOD GASES A+C+; DEVICE MASK VENT; FI02 100 %; PEEP 5 CM/H20; PRES. SUPPORT 15 CM/H2O; SITE LR; TOTAL RESP RATE 45 resp/min
[2017-01-25 14:42] LABS: HEMATOCRIT 35.4 % (36.0-46.0); MCH 31.8 PG (29.0-34.0); MCHC 33.6 G/DL (30.0-36.0); MCV 94.7 FL (83-99); MEAN PLAT.VOLUME 10.2 uM^3 (9.5-12.4); RBC DIS.WIDTH-CV 18.6 % (11.8-14.6); RBC DIS.WIDTH-SD 65.1 % (39-53); RED BLOOD COUNT 3.74 M/uL (3.80-5.20)
[2017-01-25 14:59] LABS: CHLORIDE 94 mEq/L (99-109); SODIUM 137 mEq/L (136-147)
[2017-01-25 15:00] LABS: GLUCOSE 129 mg/dL (70-99)
[2017-01-25 15:02] LABS: ANION GAP 17 MEQ/L (2-14)
[2017-01-25 15:04] LABS: GFR ESTIMATE (CALCULATED) 32 mL/min/
[2017-01-25 15:05] LABS: UREA NITROGEN (BUN) 58 mg/dL (9-23)
[2017-01-25 15:08] LABS: TROP-I INTERPRETATION NEGATIVE; TROPONIN-I 0.11 ng/mL (0.0-0.30)
[2017-01-25 16:32] LABS: PLATELET COUNT 152 K/uL (156-360); WHITE BLOOD COUNT 17.8 K/uL (4.1-10.2)
[2017-01-25] MEDS ORDERED: XANAX0.5 MG PO (16:52)
[2017-01-25] MEDS ORDERED: BROVANA15 MCG/2 M IH (16:54)
[2017-01-25] MEDS ORDERED: LASIX20 MG PO (16:55)
[2017-01-25] MEDS ORDERED: PROTONIX40 MG PO (16:59)
[2017-01-25] MEDS ORDERED: DIOVAN160 MG PO (17:00)
[2017-01-25] MEDS ORDERED: DELTASONE20 M1 PO (17:02)
[2017-01-26 00:42] VITALS: BP 98/48
[2017-01-26 00:47] VITALS: BP 92/50
== END 2017-01-26 05:23 | DRG 871 ==
LOC: EME → EDBD 14:03 → 3EAST 16:27 → EDOF 16:27 → 3EAST 23:27
PROVIDERS: Emergency Medicine
PROC: 5A09358 Assistance with Respiratory Ventilation, Less than 24 Consecutive Hours, Intermittent Positive Airway Pressure (ICD-10-PCS; principal; 2017-01-25)
DX: A41.9 Sepsis, unspecified organism (principal); J44.0 Chronic obstructive pulmonary disease with (acute) lower respiratory infection; J18.9 Pneumonia, unspecified organism; K55.059 Acute (reversible) ischemia of intestine, part and extent unspecified; K52.9 Noninfective gastroenteritis and colitis, unspecified; E86.0 Dehydration; I10 Essential (primary) hypertension; E03.9 Hypothyroidism, unspecified; G30.9 Alzheimer's disease, unspecified; F02.80 Dementia in other diseases classified elsewhere, unspecified severity, without behavioral disturbance, psychotic disturbance, mood disturbance, and anxiety; Z51.5 Encounter for palliative care; Z66 Do not resuscitate; Z88.1 Allergy status to other antibiotic agents; Z87.891 Personal history of nicotine dependence
CPT/HCPCS: 36600; 71010; 74176; 80048; 80053; 81003; 82803; 83605; 83880; 84484; 85027; 87040; 87086; 93005; 94002; 94640; 99281; 99285; J2270; J2543; J3010